=== PATIENT | female | born 1955 | race Caucasian/White ===

== ENCOUNTER → 2022-08-20 09:47 | Outpatient (BNVA) | payer MEDICARE, BC, SELFPAY | PROVIDERS: PCP Family Medicine; Visit Provider Nurse Practitioner Family | DX: G43.109 Migraine with aura, not intractable, without status migrainosus (principal); M54.2 Cervicalgia | CPT/HCPCS: 99212 ==

== ENCOUNTER → 2024-07-24 09:49 | Outpatient (BNVA) | payer MEDICARE, BC, SELFPAY | PROVIDERS: PCP Family Medicine; Visit Provider Nurse Practitioner Family | DX: G43.109 Migraine with aura, not intractable, without status migrainosus (principal); M54.2 Cervicalgia | CPT/HCPCS: 99212 ==

== ENCOUNTER → 2024-07-24 09:49 | Outpatient (AMB) | payer MEDICARE, BC, SELFPAY ==
--- NOTE | 2024-07-24 10:16 | MHC.OFFVIS ---
Vital Signs 07/24/24 10:20 Height 5 ft 7 in Weight 178 lb BMI 27.9 BP 122/84 Blood Pressure Location Lt brachial Position Left Lateral Pulse 56 Pulse Source Pulse Oximeter Pulse Oximetry (%) 96 Oxygen Delivery Method Room Air Intake Visit Reasons: f/u appt Group Chief Operator Required: No Accompanied by: Self / Same As Patient Allergies topiramate Allergy (Intermediate, Verified 07/24/24 11:01) Rash Medication List - Last Reconciled 07/24/24 by MARELY May liothyronine mcg PO propranolol 60 mg PO BID 30 days sumatriptan succinate 50 mg PO Q2H PRN 30 days topiramate 25 mg PO BEDTIME 90 days HPI Comments Details: 69-yr-old female presents for f/u visit for migraine. Last seen almost 2 yrs ago. Pt denies any significant interval medical changes. Pt reports in April 2024, she was having increased migraines- was waking up with increased migraines, and she resumed her topiramate. Within 3-4 days, she developed a full body down through her knees itchy rash- w/o SOB. She stopped the topiramate and within a week or so the rash resolved. Thus, we increased the Propranolol from 30mg bid to 60mg qam and 30mg qpm, which she is tolerating well. She feels the migraines are better controlled since increasing the propranolol. Migraines still respond to Sumatriptan 25mg prn. She states she is not having any neck pain. Her lipids are slightly elevated, but ok- not indicated to take Denies any SOB, chest pain, lightheadedness, HTN, CAD s/s. [facility] Center labs 08/19/23 08:47 Cholesterol ?252 Triglycerides 108 HDL Cholesterol 76 LDL Cholesterol ?154 Non HDL Cholesterol ?176 [facility] Medical History (Updated 07/24/24 @ 18:57 by MARELY May) Hypothyroidism Cervicalgia Hypertension History of COVID-19 Surgical History H/O: hysterectomy Social History Alcohol intake: current Patient Tobacco Use Status: Never used Tobacco Physical Exam Vital Signs: Last Vital Signs Pulse 56 07/24/24 10:20 BP 122/84 07/24/24 10:20 Pulse Ox 96 07/24/24 10:20 Oxygen Delivery Method Room Air 07/24/24 10:20 BMI result Body Mass Index 27.9 Const General: cooperative and no acute distress Orientation/consciousness: patient oriented x3 HEENT Head: Yes normocephalic Resp Effort & Inspection: normal respiratory effort and able to speak in complete sentences Neuro General: patient oriented x3, gait normal and CN's II-XI intact bilaterally Cognition (Neuro): normal cognition Motor exam (neuro): 5/5 motor strength present throughout Psych Appearance: grossly normal Mental Status: mental status grossly normal Speech and movement: Normal speech and movement present Affect: normal affect Attitude: cooperative Assessment & Plan Assessment & Plan (1) Migraine with aura: Code(s): G43.109 - Migraine with aura, not intractable, without status migrainosus Category: Medical (2) Cervicalgia: Comment: Improved Code(s): M54.2 - Cervicalgia Category: Medical Plan Continue Propranolol IR 60 mg, 1 tab daily in morning, half tab daily in p.m.. Discontinue Topiramate 25 mg qhs- due to allergy, topiramate added to patient's medication allergy list. ? Continue Sumatriptan 50mg tab - 1/2-1 tab prn. Patient's 10 year ASCVD risk- 7.8 %- intermediate risk. Discussed that if patient does develop symptoms of HTN, chest pain, shortness of breath, swelling, or other CV s/s, then we should consider discontinuing sumatriptan in favor of an acute migraine treatment that does not have vasoconstrictive effects. Patient may benefit from starting statin tx- we will defer to PCP at this time. Monitor cervicalgia. f/u in 6 months or sooner prn. Medications: Changed From propranolol 60 mg PO BID 30 days 60 tabs 1RF To propranolol 60 mg PO BID 180 tabs 3RF 90 days Discontinued topiramate Discontinued Reason: Doctor's Order 25 mg PO BEDTIME 90 days 90 tabs 1RF Coding Level of Care Code Est Pt Level 4 (24691) Diagnoses Migraine with aura G43.109 Cervicalgia M54.2
== END | disposition home or self-care (01) ==
PROVIDERS: PCP Family Medicine; Visit Provider Nurse Practitioner Family
DX: G43.109 Migraine with aura, not intractable, without status migrainosus (principal); M54.2 Cervicalgia
CPT/HCPCS: 99214